=== PATIENT | female | born 1995 | race Caucasian/White ===

== ENCOUNTER 2017-11-14 06:09 | Day surgery (SDC) | payer OTHER ==
[2017-11-13 11:46] VITALS: BMI 35.9
[2017-11-14] MEDS ORDERED: Bupivacaine/Epinephrine 0.25% 30 ML VIAL ONE (06:20)
[2017-11-14] MEDS ORDERED: CEFAZOLIN/Water 2 GM/20 ML SYRINGE ONE (06:21)
[2017-11-14] MEDS ORDERED: Iothalamate Meglumine 60% 50 ML VIAL FS ONE (06:21)
[2017-11-14] MEDS ORDERED: Ketorolac Tromethamine 30 MG/ML VIAL ONE (06:21)
[2017-11-14 06:49] LABS: BHCG - Serum Negative (NEGATIVE); Pregs Control Background? CLEAR/WHITE (CLR/WHITE); Pregs Control Bar Appear? YES (CONTROL BAR)
[2017-11-14] MEDS ORDERED: Fentanyl 100 MCG/2 ML VIAL ONE ×2 (06:50→08:57)
[2017-11-14 06:59] LABS: ALT (SGPT) 218 U/L (8-55); AST (SGOT) 106 U/L (5-34); Albumin 3.8 g/dL (3.5-5.0); Alkaline Phosphatase 127 U/L (40-150); Anion Gap 10 mmol/L (10-20); BUN (Urea Nitrogen) 12 mg/dL (7.0-18.7); Bilirubin, Total 0.6 mg/dL (0.2-1.2); Calc. Creatinine Clearance 189 mL/min (70-130); Calcium 9.1 mg/dL (7.8-10.44); Carbon Dioxide 24 mmol/L (22-29); Chloride 108 mmol/L (98-107); Estimated GFR-MDRD Greater than 90; Globulin 3.2 g/dL (2.4-3.5); Glucose 90 mg/dL (70-105); Potassium 4.1 mmol/L (3.5-5.1); Sodium 138 mmol/L (136-145)
[2017-11-14 07:00] LABS: Hemoglobin 12.6 g/dL (12.0-16.0); Mean Corpuscular HGB CONC 33.3 g/dL (32.0-36.0); Mean Corpuscular Hemoglobin 30.7 pg (27.0-31.0); Mean Corpuscular Volume 92.3 fl (81.0-99.0); Mean Platelet Volume 6.3 fL (7.4-10.4); Platelet Count 277 thou/uL (130-400); RBC Distribution Width 12.6 % (11.5-14.5); White Blood Cell (WBC) Count 6.9 thou/uL (4.8-10.8)
[2017-11-14] MEDS ORDERED: Midazolam HCl 2 mg/2 ml Vial ONE (07:20)
[2017-11-14 07:41] LABS: Band 3 % (5-11); Eosinophils 2 % (0-10); Lymphocytes 60 % (21-51); MDiff Complete? YES; Monocytes 10 % (0-10); Neutrophil 19 % (42-75); RBC Morphology Normal; Reactive Lymphocytes 6 % (0-10)
[2017-11-14] MEDS ORDERED: Promethazine HCl 25 MG/ML VIAL ONE (08:41)
--- NOTE | 2017-11-14 10:47 | OP ---
DATE OF PROCEDURE: 11/14/2017 PREOPERATIVE DIAGNOSIS: Symptomatic cholelithiasis. POSTOPERATIVE DIAGNOSIS: Symptomatic cholelithiasis. OPERATION PERFORMED: Laparoscopic cholecystectomy. SURGEON: Javier Ceja M.D. ANESTHESIA: General endotracheal per Tarsha Galindo CRNA. INDICATIONS: The patient is a 22-year-old white female who has ultrasound proven cholelithiasis and symptoms referable to gallbladder. She is taken to the operative room at this time for laparoscopic cholecystectomy. PROCEDURE IN DETAIL: Informed consent was obtained. The patient was taken to the operating room whe re general endotracheal anesthesia was obtained with the patient in the supine position. The abdomen was prepped with Betadine and draped in the usual sterile fashion. Quarter percent Marcaine with ep inephrine was infiltrated below the umbilicus and a 10 mm infraumbilical incision was created. A Nancy ess needle was passed through this incision into the peritoneal cavity. A pneumoperitoneum was estab lished using carbon dioxide up to a pressure of 15 mmHg. Local anesthetic was infiltrated and three additional 5 mm right upper quadrant incisions were created. Through the mid incision, a 5 mm port w as passed into the peritoneal cavity. The camera was passed through this port and under direct visio n, an 11 port is passed through the infraumbilical incision. The camera was replaced through this po rt, and under direct vision, two additional 5 mm ports were passed through the incisions already crea brittney. The gallbladder was grasped and retracted in a cephalad direction. Minimal adhesions were blun tly stripped away from the apex of the gallbladder, and the apex was retracted laterally and inferior ly. Careful dissection was carried out to the apex of the gallbladder to identify the cystic duct an d cystic artery. These were each carefully dissected circumferentially. The duct was of normal simon tanvi. Both the duct and the artery were divided between clips leaving two on the side to remain withi n the abdomen. The gallbladder was then dissected out of the gallbladder fossa using electrocautery and removed through the infraumbilical port site. The fascia was closed with 0 Vicryl suture and a G Slim needle. The right upper quadrant was inspected and irrigated. All irrigant was aspirated. Al l ports and instruments were removed under direct vision. Pneumoperitoneum was carefully evacuated. Additional local anesthetic was infiltrated into each port site. The skin edges were approximated w ith 4-0 Monocryl subcuticular sutures, and Dermabond was placed externally. There were no complicati ons. The patient tolerated the procedure well and was taken to the Recovery Room in stable condition . FINDINGS: The patient had no acute inflammation of her gallbladder. There were no adhesions to the gallbladder. The duct was small and noninflamed and a cholangiogram was not obtained. There were nu merous small light yellow stones within the gallbladder. There was essentially no blood loss and no complications. Patient tolerated the procedure well and was taken to recovery room in stable conditi on.
[2017-11-14] MEDS ORDERED: Ondansetron HCl/PF 4 MG/2 ML Vial ONE (11:19)
[2017-11-14] MEDS ORDERED: PROPOFOL 200 MG/20 ML VIAL ONE (11:19)
[2017-11-14] MEDS ORDERED: diphenhydrAMINE 50 MG/ML VIAL ONE (11:19)
[2017-11-14] MEDS ORDERED: Lidocaine 1% PF 5 ML VIAL ONE (11:19)
[2017-11-14] MEDS ORDERED: Dexamethasone 20 MG/5 ML VIAL ONE ×2 (11:19)
== END 2017-11-14 10:00 | disposition home or self-care (01) ==
LOC: SDC 06:09
PROVIDERS: ATTEND Specialist
PROC: 0FT44ZZ Resection of Gallbladder, Percutaneous Endoscopic Approach (ICD-10-PCS; principal; 2017-11-14)
DX: K80.10 Calculus of gallbladder with chronic cholecystitis without obstruction (principal)
CPT/HCPCS: 36415; 80053; 84703; 85025; 88304; 96374; J0131; J1100; J1200; J1885; J2001; J2250; J2405; J2550; J2704; J3010; Q9961